=== PATIENT | female | born 1960 | race Caucasian/White ===

== ENCOUNTER 2017-05-22 07:34 | Inpatient (IN) | payer OTHER ==
--- NOTE | 2017-05-21 09:43 | GHP ---
[f rep st] PREOP HISTORY AND PHYSICAL DATE OF ADMISSION: 05/22/2017 PROBLEM: Right knee arthritis. HISTORY OF PRESENT ILLNESS: The patient is a 56-year-old woman admitted for right total knee arthrop lasty. She has had progressive pain in her right knee for the past couple of years. The knee is now very painful. She is using ibuprofen. Her activities are very limited. I did her left total knee arthroplasty on February 24, 2015 with an excellent result. She is admitted for right total knee arthrop lasty now. PAST MEDICAL HISTORY: Excellent general health. No history of heart disease, stents, DVT, hepatitis , or sleep apnea. CURRENT MEDICATIONS: Occasional Advil. DRUG ALLERGIES: She states that she is allergic to aspirin. Aspirin causes nausea and an upset stom ach. She does not have a true allergy. She tolerated baby aspirin for DVT prophylaxis 2 years ago w hen I did her left total knee arthroplasty. Metal allergies: None. Latex allergy: None. SOCIAL HISTORY: The patient has a partner. She does not smoke cigarettes. Occasionally drinks alco hol. 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 PHYSICAL EXAMINATION: GENERAL: She is a healthy-appearing woman. Height 5 feet 6 inches. Weight 2 00 pounds. BMI 32.3. EYES: The conjunctivae and sclerae are clear. Pupils are round and reactive. MOUTH: Good oral hygiene. CHEST: Clear. HEART: Regular rhythm. No murmurs. EXTREMITIES: Per tinent findings limited to her right knee. She has varus alignment. A moderate effusion is present. She is tender along the medial joint line. Mild pseudolaxity of her medial collateral ligament. S he lacks a couple of degrees of full extension and flexes to 100 degrees. IMAGING: Her films show advanced medial compartment degenerative arthritis in her right knee. She i s bone on bone. Varus alignment is present. Her left total knee looks good. IMPRESSION ON ADMISSION: 1. Right knee advanced medial compartment degenerative arthritis and varus deformity. 2. Two years status post a left total knee arthroplasty. PLAN: She will undergo a right total knee arthroplasty. The surgery has been described to her, incl uding the risks, complications, expectations, and recovery time. I have stressed the importance of p ostoperative physical therapy. I have advised her that with bilateral procedures, there can be mild [id number]-[id number] differences with the recovery and even the final result. She can tolerate baby aspirin for DVT prophylaxis. She would like to use Nucynta postoperatively for pain. All her questions have been answered, and she consents to surgery. /[id number]/MODL
[~2017-05-22 07:34] MED LIST: POVIDONE-IODINE 20 ML in SODIUM CL IRRIG SOLUTION 500 ML IRR ONE; ROPIVACAINE 0.2% 80 MG, EPINEPHrine 0.2 MG, KETOROLAC TROMETHAMINE 30 MG in BAG 0 ML IU ONE; TRANEXAMIC ACID 1,000 MG in NS 100 ML IV ONE
[2017-05-22] MEDS ORDERED: VANCOMYCIN 1 GM VIAL ONE (07:55)
[2017-05-22] MEDS ORDERED: ceFAZolin 1 GM/5 ML SYR ONE (07:56)
[2017-05-22] MEDS ORDERED: ceFAZolin 2 GM/DEXTROSE 100 ML IV ONE (08:03)
[2017-05-22] MEDS ORDERED: ACETAMINOPHEN 325 MG TAB PO ONE (08:03)
[2017-05-22] MEDS ORDERED: DEXAMETHASONE 4 MG/ML VIAL IVP ONE (08:03)
[2017-05-22] MEDS ORDERED: FAMOTIDINE 20 MG TAB PO ONE (08:03)
[2017-05-22] MEDS ORDERED: LR 1,000 ML IV ONE (08:39)
--- NOTE | 2017-05-22 08:56 | PDANEPAE ---
ANE History of Present Illness 56 yr old female with knee DJD s/p L TKA in 2015 now for R TKA. ANE Past Medical History - Cardiovascular History Hx Hypertension: Yes Hx Arrhythmias: No Hx Chest Pain: No Hx Coronary Artery / Peripheral Vascular Disease: No Hx CHF / Valvular Disease: No Hx Palpitations: No Cardiovascular History Comment: OF PAIN MEDS CAN ELEVATE - Pulmonary History Hx COPD: No Hx Asthma/Reactive Airway Disease: No Hx Recent Upper Respiratory Infection: No Hx Oxygen in Use at Home: No Hx Sleep Apnea: No Sleep Apnea Screening Result - Last Documented: Negative - Neurologic History Hx Cerebrovascular Accident: No Hx Seizures: No Hx Dementia: No - Endocrine History Hx Diabetes: No - Renal History Hx Renal Disorders: No - Liver History Hx Hepatic Disorders: No - Neurological & Psychiatric Hx Hx Neurological and Psychiatric Disorders: No - Cancer History Hx Cancer: No - Congenital Disorder History Hx Congenital Disorders: No - GI History Hx Gastrointestinal Disorders: Yes Gastrointestinal History Comment: SENS W/OCCAS NAUSEA - Other Health History Other Health History: NEG - Chronic Pain History Chronic Pain: Yes (KNEE) - Surgical History Prior Surgeries: R KNEE MENISCUS. APPENDECTOMY. HYSTERECTOMY ANE Review of Systems Review of Systems: - Exercise capacity METS (RN): 4 METS ANE Patient History - Allergies Allergies/Adverse Reactions: aspirin [Aspirin] Allergy (Intermediate, Verified 07/24/13 07:39) Vomiting codeine [Codeine] Allergy (Intermediate, Verified 07/24/13 07:39) Vomiting GARLIC Allergy (Intermediate, Uncoded 11/09/09 09:54) Other-Enter Comments ONION Allergy (Intermediate, Uncoded 11/09/09 09:54) Other-Enter Comments - Home Medications Home medications: home medication list seen and reviewed Home Medications: Multivitamins [Multivitamin (*)] 1 each PO DAILY 02/22/15 [Last Taken 02/22/15] Acetaminophen [Tylenol 325mg (*)] 325 mg PO DAILY PRN 05/03/17 [Last Taken Unknown] Ibuprofen [Motrin (*)] 200 mg PO DAILY PRN 05/22/17 [Last Taken Unknown] [place]-3 Fatty Acids [Fish Oil 1000 mg (*)] 1,000 mg PO DAILY 05/22/17 [Last Taken Unknown] - NPO status NPO Status: no food or drink >8 hours NPO Since - Liquids (Date): 05/21/17 NPO Since - Liquids (Time): 20:00 NPO Since - Solids (Date): 05/21/17 NPO Since - Solids (Time): 20:00 - Smoking Hx Smoking Status: Former smoker - Family Anes Hx Family Hx Anesthesia Complications: NEG ANE Labs/Vital Signs - Vital Signs Blood Pressure: 175/105 Heart Rate: 76 Respiratory Rate: 16 O2 Sat (%): 94 Height: 170.18 cm Weight: 98.883 kg ANE Anesthesia Plan Anesthesia Plan: spinal
[2017-05-22 09:17] LABS: CREATININE 0.8 mg/dL (0.6-1.0); GLOMERULAR FILTRATION RATE > 60
[2017-05-22] MEDS ORDERED: MIDAZOLAM 2 MG/2 ML VIAL IVP ONE (09:34)
[2017-05-22] MEDS ORDERED: MIDAZOLAM 2 MG/2 ML VIAL ONE (09:38)
[2017-05-22] MEDS ORDERED: SCOPOLAMINE HYDROBROMIDE 1 MG/3 DAYS PATCH TD ONE ×2 (09:38)
[2017-05-22] MEDS ORDERED: fentaNYL 100 MCG/2 ML INJ ONE (09:47)
[2017-05-22] MEDS ORDERED: PROPOFOL/EMULSION 500 MG/50 ML BOTTLE IV ONE (09:47)
[2017-05-22] MEDS ORDERED: LIDOCAINE 2% 5 ML SDV ONE (09:47)
[2017-05-22] MEDS ORDERED: BUPIVACAINE 0.5% 30 ML SDV ONE (11:07)
[2017-05-22] MEDS ORDERED: PROPOFOL 200 MG/20 ML VIAL ONE (11:14)
[2017-05-22] MEDS ORDERED: fentaNYL 100 MCG/2 ML INJ IVP PRN (11:34)
[2017-05-22] MEDS ORDERED: ALBUTEROL 3 ML DEYVIAL IH PRN (11:34)
[2017-05-22] MEDS ORDERED: OXYCODONE/APAP 5/325 TAB PO PRN (11:34)
[2017-05-22] MEDS ORDERED: LABETALOL HCL 50 MG/10 ML SYR IVP PRN (11:34)
[2017-05-22] MEDS ORDERED: NALOXONE HCL 0.4 MG/ML INJ IVP PRN (11:34)
[2017-05-22] MEDS ORDERED: ONDANSETRON 4 MG/2 ML VIAL IVP PRN (11:34)
[2017-05-22] MEDS ORDERED: LR 500 ML IV PRN (11:34)
[2017-05-22] MEDS ORDERED: ACETAMINOPHEN 500 MG TAB PO PRN (11:34)
[2017-05-22] MEDS ORDERED: METOCLOPRAMIDE 10 MG/2 ML VIAL IVP PRN (11:49)
[2017-05-22] MEDS ORDERED: BISACODYL 10 MG SUPP PR PRN (11:49)
[2017-05-22] MEDS ORDERED: ONDANSETRON DISINTEGRATING 4 MG TAB PO PRN (11:49)
[2017-05-22] MEDS ORDERED: MAGNESIUM HYDROXIDE 30 ML UDCUP PO PRN (11:49)
[2017-05-22] MEDS ORDERED: PROMETHAZINE HCL 25 MG SUPPR PR PRN (11:49)
[2017-05-22] MEDS ORDERED: TEMAZEPAM 15 MG CAP PO PRN (11:49)
[2017-05-22] MEDS ORDERED: POLYETHYLENE GLYCOL 3350 17 GM PKT PO PRN (11:49)
[2017-05-22] MEDS ORDERED: diphenhydrAMINE 25 MG CAP PO PRN (11:49)
[2017-05-22] MEDS ORDERED: LACTULOSE 20 GM/30 ML UDCUP PO PRN (11:49)
[2017-05-22] MEDS ORDERED: PROMETHAZINE HCL 25 MG/ML INJ IVP PRN (11:49)
[2017-05-22] MEDS ORDERED: DIPHENOXYLATE/ATROPINE LOMOTIL 1 TAB PO PRN (11:49)
--- NOTE | 2017-05-22 11:49 | POSTOPPROG ---
Post Op Note Date of Operation: 05/22/17 Surgeon: José Stoddard Wooden Furniture Polisher: Mendoza Carrillo/Lissa No Anesthesiologist: Ольга Morris Anesthesia: IV Sedation, Spinal Pre-op Diagnosis: Right knee severe degenerative arthritis. Procedure: Right total knee arthroplasty. Inf/Abcess present in the surg proc area at time of surgery?: No EBL: 50-100 (Adductor canal block.)
[2017-05-22] MEDS ORDERED: LR 1,000 ML IV SCH (12:00)
--- NOTE | 2017-05-22 13:02 | GOP ---
[f rep st] OPERATIVE REPORT DATE OF OPERATION: 05/22/2017 SURGEON: José Stoddard MD PIPE FITTER APPRENTICE: Mendoza Carrillo CFA and Lissa No RN. ANESTHESIA: A combination of Marcaine, spinal, and IV sedation. ANESTHESIOLOGIST: Ольга Morris MD. PREOPERATIVE DIAGNOSIS: Right knee severe degenerative arthritis with varus deformity. POSTOPERATIVE DIAGNOSIS: Right knee severe degenerative arthritis with varus deformity. PROCEDURE PERFORMED: Right total knee arthroplasty, cemented, Maier and Nephew Journey II, posterior stabilized. FINDINGS: ESTIMATED BLOOD LOSS: The estimated blood loss following inflation of the tourniquet was about 100 c c. The sponge and needle counts were correct on 2 occasions. The patient was awakened from anesthesia, transferred to her gurney, and taken to PACU in satisfactor y condition. There were no recognized intraoperative complications. In the PACU, for additional postoperative pain control, Dr. Morris performed an adductor canal block . Mendoza Carrillo and Lissa No acted as surgical assistants. Their assistance was a medical necessi ty for safe completion of the procedure. DESCRIPTION OF PROCEDURE: The patient was given 2 g of preoperative IV Ancef within 60 minutes of humphrey rgery. She also received IV tranexamic acid at a dose of 10 mg/kg. She was placed on the operating room table and given spinal anesthesia with Marcaine by Dr. Morris. She was then placed supine and given IV sedation. A Garcia catheter was not used. She wore a stocking and SCD on the nonoperative l eg. A bolster was placed under her right hip to prevent excessive external rotation in the right low er extremity. Her right lower extremity was prepped with ChloraPrep from the upper thigh tourniquet to the tips of the toes. It was draped free using sterile sheets, stockinette, and Ioban plastic adh esive drape. The lower leg was wrapped with compressive Coban. Her leg was exsanguinated with eleva tion and a 6-inch compressive wrap, and the pneumatic tourniquet was inflated to 300 mmHg. I used th e tourniquet pressure a little higher than normal because of her bulky thigh. The World Health Organization time-out was performed to verify the correct patient identity and the c orrect surgical side. The [place] time-out was also performed. The DeMayo leg holding device was sterilely attached to the operating room table and used throughout the procedure to help position the knee. A straight midline incision was made, centered on the [place] la. Subcutaneous tissues were sharply divided, and hemostasis was obtained using electrocautery. A medial subcutaneous flap was developed, and the capsule and synovium were opened in a medial parapa tellar fashion. Very extensive degenerative changes were present in all 3 compartments. The medial capsule and periosteum were elevated off the rim and medial tibial plateau all the way around to the posteromedial corner. The medial collateral ligament was released enough to balance the medial side of the knee. In order to improve exposure, the patella was prepared first. The original thickness of the patella was measured. Peripheral osteophytes removed. I cut a flat surface on the back of the patella. She was sized for a 35 mm resurfacing component. I removed enough bone from the patella such that the r emaining bone plus the thickness of the patellar component recreated the original thickness of the pa tella. Her composite thickness was 22 mm. The intramedullary alignment guide system was used to set up the distal femoral cut. The distal femu r was cut in 6 degrees of valgus. Because of a significant preoperative flexion contracture, I made a +2 mm cut on the distal femur. The sizing jig was used to determine proper femoral sizing. She wa s a true size 5. I evaluated this carefully because I had used a size 4 femoral component on the lef t side. However, trying to use a size 4 on the right would have resulted in notching of the anterior cortex. The 5-in-1 cutting block was applied, and the anterior and posterior condylar cuts and [place] cuts were made. The final jig was used to remove the central portion of the distal femur to acco mmodate the posterior stabilized femoral component. I was careful to determine proper rotation by re ferencing off Luis M line. Each cut was checked for accuracy before and after it was made. The f emvimal was sized for a size 5 component. The trial component was tapped securely into place and was a good fit. Next, the tibia was prepared. The proximal tibial cut was made using the extramedullary alignment gu milly system. The cut was made in a few degrees of posterior slope. I had to recut the tibia one claudia tional time in order to achieve proper varus-valgus alignment and proper rotation. The posterior com partment was cleared of meniscal remnants. Osteophytes were removed from the back of her femoral con dyles. I checked the flexion and extension gaps, and they were equal, balanced and rectangular. The tibia was sized for a size 3 component. With the trial components in place, I selected an 11 mm polyethylene posterior stabilized tibial insert. The knee came to full extension and flexed to 120 d egrees. There was no overstuffing in flexion. Her collateral ligaments were stable and balanced in 90 degrees of flexion and full extension. The trial patellar button was applied, and patellar tracki ng was checked. She had a slight tendency for lateral tilt. I did a very light and limited lateral release. Following this, the patella tracked accurately. 40 mL of the joint anesthetic cocktail were injected into the posterior capsule, the periarticular st ructures, the quadriceps muscle and tendon areas, and the subcutaneous tissues along the skin edges. A second dose of IV tranexamic acid at a dose of 10 mg/kg was given. The surfaces were prepared for cementing. They were carefully cleaned with the pulsating lavage irri gation and thoroughly dried. The CarboJet device was used to blow dry the cancellous surfaces. A do uble batch of methylmethacrylate cement with 2 g of powdered vancomycin added was mixed. While it wa s still in a semi-liquid state, all [address] components were cemented in place. Excess cement was removed b efore it hardened. The 11 mm trial tibial insert was tried again and was the proper thickness. The actual component was inserted and locked into place. The knee was thoroughly irrigated one final time with a dilute Beta dine solution. The tourniquet was deflated. Total tourniquet time was 59 minutes. The vastus medialis portion of the extensor mechanism was repaired with several interrupted figure-of -eight #2 FiberWire sutures. The capsule and synovium were closed first with multiple interrupted fi [id number] 0 PDS sutures, followed by a running #2 barbed Ethicon Stratafix PDO suture. Subcutane ous tissues were closed with a running 0 barbed Ethicon Stratafix Monoderm suture. The skin was clos ed with a running 3-0 barbed Ethicon Stratafix Monoderm subcuticular suture. The skin was sealed wit h 1/2-inch Steri-Strips. The wound was covered with a 9 mm x 25 mm Aquacel surgical dressing. This was followed by a 6-inch compressive wrap. A long-leg CHRISTEN stocking and SCD were applied followed by the cooling device. The patient wore a stocking and SCD on the opposite leg during the procedure. I used a size 5 cemented Maier and Nephew Oxinium posterior stabilized femoral component, a size 3 ce mented tibial base plate, an 11 mm posterior stabilized tibial insert, and a 35 mm cemented round all -polyethylene resurfacing patellar component. /[id number]/MODL
[2017-05-22] MEDS: ONDANSETRON 4 MG/2 ML VIAL IVP PRN ×2 (13:14→19:00)
[2017-05-22] MEDS: traMADol 50 MG TAB PO PRN (13:15)
[2017-05-22] MEDS: KETOROLAC 30 MG/1 ML SDV IVP PRN (13:15)
--- NOTE | 2017-05-22 13:39 | POSTANESTH ---
Post Anesthetic Evaluation Cardiovascular Status: Normal, Stable Respiratory Status: Normal, Stable Level of Consciousness/Mental Status: Can Participate in Eval, Mildly Sleepy, Arousable Pain Control: Adequate, Prn Tx Ordered Nausea/Vomiting Control: Adequate, Prn Tx Ordered Complications Possibly Related to Anesthesia: None Noted (U/S guided R adductor canal block performed in recovery room. Pt comfortable throughout placement of block.)
[2017-05-22] MEDS: TRANEXAMIC ACID 650 MG TAB PO SCH ×2 (14:11→20:44)
[2017-05-22] MEDS: ACETAMINOPHEN 325 MG TAB PO SCH ×3 (14:11→18:53)
[2017-05-22] MEDS: TAPENTADOL HCL 50 MG TAB PO PRN ×2 (14:14→18:19)
[2017-05-22] MEDS: CYCLOBENZAPRINE 10 MG TAB PO PRN (15:26)
[2017-05-22 16:29] VITALS: RESP 16
[2017-05-22] MEDS ORDERED: HYDROCODONE/APAP 10/325 TAB PO PRN (17:04)
[2017-05-22] MEDS: ceFAZolin 2 GM/DEXTROSE 100 ML IV SCH (18:20)
[2017-05-22] MEDS: SENNOSIDES/DOCUSATE SODIUM TAB PO SCH (20:43)
[2017-05-22] MEDS: FAMOTIDINE 20 MG TAB PO SCH (20:44)
[2017-05-22] MEDS: ASPIRIN 81 MG CHEWABLE TAB PO SCH (20:44)
[2017-05-23] MEDS: ACETAMINOPHEN 325 MG TAB PO SCH ×3 (01:10→12:19)
[2017-05-23] MEDS: traMADol 50 MG TAB PO PRN ×2 (01:12→08:15)
[2017-05-23] MEDS: ceFAZolin 2 GM/DEXTROSE 100 ML IV SCH (01:13)
[2017-05-23] MEDS: TRANEXAMIC ACID 650 MG TAB PO SCH (04:25)
[2017-05-23] MEDS: KETOROLAC 30 MG/1 ML SDV IVP PRN ×2 (04:51→12:18)
[2017-05-23 05:00] VITALS: O2SAT 93
[2017-05-23] MEDS: ASPIRIN 81 MG CHEWABLE TAB PO SCH (08:15)
[2017-05-23] MEDS: SENNOSIDES/DOCUSATE SODIUM TAB PO SCH (08:15)
[2017-05-23] MEDS: FAMOTIDINE 20 MG TAB PO SCH (08:15)
[2017-05-23] MEDS ORDERED: MULTIVITAMINS 1 EACH TAB PO SCH (09:00)
--- NOTE | 2017-05-23 10:11 | SOAPPROG ---
SOAP Progress Note Assessment/Plan: Assessment: Afebrile. Awake and alert. She had a lot of pain yesterday afternoon, but is much more comfortable today. She had moderate bleeding but has had a new dressing applied today. Postop films look excellent. Postop hemoglobin hematocrit are adequate. She is making good progress with physical therapy today. Plan: Continue physical therapy today. Discharged later today. 05/23/17 10:10 Objective: Vital Signs Temp Pulse Resp BP Pulse Ox 36.7 C 57 L 16 118/81 H 93 05/23/17 07:47 05/23/17 07:47 05/23/17 07:47 05/23/17 07:47 05/23/17 07:47 Laboratory Results 05/23/17 04:28 05/22/17 09:00 05/22/17 05/23/17 05/24/17 05:59 05:59 05:59 Intake Total 4880 Output Total 2200 700 Balance 2680 -700 ICD10 Worksheet Patient Problems: Problems Problem Status Onset Osteoarthritis of right knee Acute Primary osteoarthritis of left knee Acute
--- NOTE | 2017-05-23 10:19 | PDIAF ---
- Diagnosis Code Status: Full Code - Medication Management Discharge Medications: Medications to Continue on Transfer Multivitamins [Multivitamin (*)] 1 each PO DAILY 02/22/15 [Last Taken 02/22/15] [place]-3 Fatty Acids [Fish Oil 1000 mg (*)] 1,000 mg PO DAILY 05/22/17 [Last Taken Unknown] Acetaminophen [Tylenol 325mg (*)] 650 mg PO Q6HRS tab 05/23/17 [Last Taken Unknown] Aspirin [Aspirin 81mg (*)] 81 mg PO DAILY tab.chew 05/23/17 [Last Taken Unknown ] Ferrous Sulfate [Slow Fe 140 MG (*)] 140 mg PO DAILY tab.er 05/23/17 [Last Taken Unknown] Ondansetron Odt [Zofran Odt 4 mg (*)] 4 mg PO Q4HRS PRN #15 tab 05/23/17 [Last Taken Unknown] Sennosides/Docusate Sodium [Senokot-S] 1 - 2 tab PO BID tab 05/23/17 [Last Taken Unknown] Tapentadol HCl [Nucynta 50 MG (*)] 50 mg PO Q4HRS PRN #30 tab 05/23/17 [Last Taken Unknown] traMADol [Ultram 50 mg (*)] 50 mg PO Q6HRS PRN #30 tab 05/23/17 [Last Taken Unknown] Discharge Medications: Refer to the Discharge Home Medication list for PRN reason. - Orders Services needed: Physical Therapy Diet Recommendation: no restrictions on diet Diet Texture: Regular Texture Diet - Follow Up Care Current Providers and Referrals: Viktoria Gonzalez [Primary Care Provider] - José Stoddard MD [Medical Doctor] - 06/07/17
--- NOTE | 2017-05-23 10:52 | GDS ---
[f rep st] DISCHARGE SUMMARY ADMISSION DIAGNOSIS: Right knee severe degenerative arthritis with varus deformity. DISCHARGE DIAGNOSIS: Right knee severe degenerative arthritis with varus deformity. OPERATION PERFORMED: 05/22/2017, a right total knee arthroplasty. POSTOPERATIVE COMPLICATIONS: None. CONDITION ON DISCHARGE: Improved. DESCRIPTION OF HOSPITAL COURSE: The patient was admitted to the hospital the morning of surgery. He r admission CBC, BUN, and creatinine were normal. The same day, under combination of Marcaine, spina l, IV sedation, and adductor canal block, she underwent a right total knee arthroplasty. Postoperati vely, she was treated with multimodal DVT prophylaxis, including early mobilization and aspirin. On the first postoperative day, her hemoglobin and hematocrit were 13.0 and 40.0. She did not require t ransfused blood. She was seen by Physical Therapy and made excellent progress with ambulation, stair s, and knee range of motion. By the time of discharge, she was afebrile and was independent walking. DISPOSITION: The patient discharged to her home. She will progress to full weightbearing as tolerat ed. Continue CHRISTEN stockings for 1 week. She has prescriptions for Nucynta and tramadol for pain cont rol. She will have a couple of home physical therapy visits, followed by outpatient physical therapy at my office. I will see her back in the office on June 07, 2017. If there are any problems, she is to call me at the office. /[id number]/MODL
[2017-05-23 11:56] VITALS: BP 158/100; PULSE 62; TEMP 98.4
[2017-05-23] MEDS: CYCLOBENZAPRINE 10 MG TAB PO PRN (12:19)
--- NOTE | 2017-05-23 16:05 | ASDISCHSUM ---
Discharge Information Plan Status:Home with No Needs Medically Cleared to Leave: Discharge Date:05/23/2017 12:49 PM CM D/C Disposition:Home, Routine, Self-Care ADT D/C Disposition:Home Health Service Projected Discharge Date:05/23/2017 12:49 PM Transportation at D/C: Discharge Delay Reason: Follow-Up Date:05/23/2017 12:49 PM Discharge Slot: Final Diagnosis: Placement Information Patient Contact Information Contact Name:CARMEN Relationship: Address:[address] City:[facility] Phone: State/Zip Code:[place] [address] Email: Financial Information Financial Class:[facility] Primary Plan Desc:[facility]AN[facility] Primary Plan Number:[id number] Secondary Plan Desc: Secondary Plan Number: Assessment Information [facility] CM Progress Note CM Note CM Note Notes: Therapies clear pt for home. Pt medically stable for d/c, no CM d/c needs identified. Date Signed: 05/23/2017 04:04 PM Electronically Signed By:MEGHNA Zhou Intervention Information
[2017-05-24] MEDS ORDERED: FERROUS SULFATE 140 MG TAB.ER PO SCH (09:00)
[2017-05-25] MEDS ORDERED: PATCH REMOVAL 1 EA PATCH TD SCH (09:38)
== END 2017-05-23 12:49 | disposition home health service (06) | DRG 470 ==
LOC: F3N 07:34
PROVIDERS: ADMIT Orthopaedic Surgery; ATTEND Orthopaedic Surgery
PROC: 0SRC0J9 Replacement of Right Knee Joint with Synthetic Substitute, Cemented, Open Approach (ICD-10-PCS; principal; 2017-05-22 09:30)
DX: M17.11 Unilateral primary osteoarthritis, right knee (principal); Z96.652 Presence of left artificial knee joint
CPT/HCPCS: 97110-GP; 97116-GP; 97161-GP; 97165-GO; 97530-GP; C1713; J0171; J0690; J1100; J1885; J2250; J2405; J2704; J2795; J3010; J3370